=== PATIENT | female | born 1990 | race Caucasian/White ===

== ENCOUNTER → 2017-09-26 | Outpatient (CLI) | payer BC ==
[2017-09-26 20:08] LABS: FREE T4 1.29 NG/DL (0.76-1.46)
[2017-09-26 21:46] LABS: TOTAL T3 123.2 NG/DL (60.0-181.0)
== END ==
LOC: M WUC 17:26
DX: E05.00 Thyrotoxicosis with diffuse goiter without thyrotoxic crisis or storm (principal)
CPT/HCPCS: 84480

== ENCOUNTER → 2017-10-10 | Outpatient (CLI) | payer BC | LOC: M RAD 12:09 | DX: E05.00 Thyrotoxicosis with diffuse goiter without thyrotoxic crisis or storm (principal) ==

== ENCOUNTER → 2018-03-16 | Outpatient (REF) | payer BC | LOC: M LAB REF 17:19 | DX: Z12.4 Encounter for screening for malignant neoplasm of cervix (principal) | CPT/HCPCS: 88142; G0123 ==

== ENCOUNTER → 2018-05-07 | Outpatient (REF) | payer BC | LOC: M LAB REF 12:35 | PROVIDERS: ATTEND Physician Assistant | DX: J02.9 Acute pharyngitis, unspecified (principal) ==

== ENCOUNTER → 2018-10-03 | Outpatient (REF) | payer BC ==
[2018-10-15 14:22] LABS: GC DNA AMPLIFICATION NEGATIVE (NEGATIVE)
[2018-10-17 06:29] LABS: CHLAMYDIA DNA AMPLIFICATION NEGATIVE (NEGATIVE)
== END ==
LOC: M LAB REF 16:57
PROVIDERS: ATTEND Advanced Practice Midwife
DX: Z30.430 Encounter for insertion of intrauterine contraceptive device (principal)

== ENCOUNTER → 2018-10-14 | Outpatient (REF) | payer BC | LOC: M SFHCLERA 11:54 | PROVIDERS: ATTEND Nurse Practitioner Family | DX: J02.9 Acute pharyngitis, unspecified (principal) ==

== ENCOUNTER → 2019-03-20 | Outpatient (REF) | payer BC ==
[2019-03-20 19:53] LABS: CHLAMYDIA DNA AMPLIFICATION NEGATIVE (NEGATIVE); GC DNA AMPLIFICATION NEGATIVE (NEGATIVE)
== END ==
LOC: M LAB REF 17:09
PROVIDERS: ATTEND Advanced Practice Midwife
DX: Z11.3 Encounter for screening for infections with a predominantly sexual mode of transmission (principal)

== ENCOUNTER → 2019-03-20 | Outpatient (CLI) | payer BC ==
[2019-03-21 10:41] LABS: HEPATITIS A ANTIBODY IGM NEGATIVE (NEGATIVE); HEPATITIS B CORE ANTIBODY IGM NEGATIVE (NEGATIVE); HEPATITIS B SURFACE ANTIGEN NEGATIVE (NEGATIVE); HIV 1&2 SCREEN CENTAUR NEGATIVE (NEGATIVE)
== END ==
LOC: M SMT 15:54
PROVIDERS: ATTEND Advanced Practice Midwife
DX: Z11.3 Encounter for screening for infections with a predominantly sexual mode of transmission (principal)

== ENCOUNTER → 2020-09-08 | Outpatient (REF) | payer BC | LOC: M SFHCWAGY 17:07 | PROVIDERS: ATTEND Specialist | DX: Z12.4 Encounter for screening for malignant neoplasm of cervix (principal) ==

== ENCOUNTER → 2021-12-16 | Outpatient (REF) | payer BC | LOC: M LABWUC 15:44 | PROVIDERS: ATTEND Obstetrics & Gynecology | DX: N91.2 Amenorrhea, unspecified (principal) ==

== ENCOUNTER → 2021-12-18 | Outpatient (CLI) | payer BC | LOC: M WUC 14:51 | PROVIDERS: ATTEND Obstetrics & Gynecology | DX: N91.2 Amenorrhea, unspecified (principal) ==

== ENCOUNTER → 2021-12-31 | Outpatient (CLI) | payer BC ==
[2021-12-31 17:28] LABS: HEMATOCRIT 41.3 % (36.0-47.0); HEMOGLOBIN 13.9 g/dl (12.0-15.5); MEAN CORPUSCULAR HEMOGLOBIN 34.2 pg (27.0-33.0); MEAN CORPUSCULAR HGB CONC 33.7 g/dl (32.0-36.5); MEAN CORPUSCULAR VOLUME 101.5 fl (80.0-96.0); PLATELET COUNT, AUTOMATED 215 10^3/uL (150-450); RED BLOOD COUNT 4.07 10^6/uL (4.00-5.40); WHITE BLOOD COUNT 6.9 10^3/uL (4.0-10.0)
[2021-12-31 18:29] LABS: HEPATITIS B SURFACE ANTIGEN NEGATIVE (NEGATIVE); HEPATITIS C VIRUS ABY INDEX < 0.0 INDEX (<0.8); HIV 1&2 SCREEN CENTAUR NEGATIVE (NEGATIVE)
[2021-12-31 18:44] LABS: GC DNA AMPLIFICATION NEGATIVE (NEGATIVE)
== END ==
LOC: M WUC 11:06
PROVIDERS: ATTEND Specialist
DX: Z34.01 Encounter for supervision of normal first pregnancy, first trimester (principal)

== ENCOUNTER → 2022-02-09 | Outpatient (CLI) | payer BC | LOC: M PLALAB 13:27 | PROVIDERS: ATTEND Specialist | DX: Z34.80 Encounter for supervision of other normal pregnancy, unspecified trimester (principal) ==

== ENCOUNTER → 2022-03-01 | Outpatient (REF) | payer BC | LOC: M SFHCWAGY 12:58 | PROVIDERS: ATTEND Advanced Practice Midwife | DX: Z34.02 Encounter for supervision of normal first pregnancy, second trimester (principal) ==

== ENCOUNTER → 2022-04-01 | Outpatient (CLI) | payer BC | LOC: M WHC 08:28 | PROVIDERS: ATTEND Advanced Practice Midwife | DX: Z34.02 Encounter for supervision of normal first pregnancy, second trimester (principal) ==

== ENCOUNTER → 2022-05-18 | Outpatient (CLI) | payer BC ==
[2022-05-18 13:24] LABS: HEMATOCRIT 38.5 % (36.0-47.0); HEMOGLOBIN 13.3 g/dl (12.0-15.5); MEAN CORPUSCULAR HEMOGLOBIN 35.3 pg (27.0-33.0); MEAN CORPUSCULAR HGB CONC 34.5 g/dl (32.0-36.5); MEAN CORPUSCULAR VOLUME 102.1 fl (80.0-96.0); PLATELET COUNT, AUTOMATED 185 10^3/uL (150-450); RED BLOOD COUNT 3.77 10^6/uL (4.00-5.40); WHITE BLOOD COUNT 8.9 10^3/uL (4.0-10.0)
[2022-05-18 15:53] LABS: GC DNA AMPLIFICATION NEGATIVE (NEGATIVE)
== END ==
LOC: M PLALAB 09:29
PROVIDERS: ATTEND Specialist
DX: Z34.02 Encounter for supervision of normal first pregnancy, second trimester (principal)

== ENCOUNTER → 2022-07-21 | Outpatient (REF) | payer BC | LOC: M SFHCWAGY 10:02 | PROVIDERS: ATTEND Obstetrics & Gynecology | DX: Z34.93 Encounter for supervision of normal pregnancy, unspecified, third trimester (principal) ==

== ENCOUNTER 2022-07-30 15:13 | Inpatient (IN) | payer BC ==
[~2022-07-30] VITALS: Ht 172.7 cm; Wt 115.4 kg
[2022-07-30] VITALS (15 sets, daily range): BP systolic 121–184; BP diastolic 74–103
[2022-07-30] MEDS ORDERED: [UNRECOGNIZED DRUG - CODE] SQ (15:33)
[2022-07-30] MEDS ORDERED: FAMO20TA PO (15:33)
[2022-07-30] MEDS ORDERED: PRENTAB9 PO (15:33)
[2022-07-30] MEDS ORDERED: BENA25CA4 PO (15:33)
[2022-07-30 16:42] LABS: CREATININE,RANDOM URINE 34.5 MG/DL
[2022-07-30 16:43] LABS: TOTAL PROTEIN,RANDOM URINE < 6.0 MG/DL (0.0-14.0)
[2022-07-30] MEDS: BETAMETHASONE SOLUSPAN 6MG/ML 5ML VIAL IM SCH (16:43)
[2022-07-30 16:45] LABS: HEMATOCRIT 37.1 % (36.0-47.0); MEAN CORPUSCULAR HEMOGLOBIN 34.6 pg (27.0-33.0); MEAN CORPUSCULAR VOLUME 98.7 fl (80.0-96.0); PLATELET COUNT, AUTOMATED 183 10^3/uL (150-450); RED BLOOD COUNT 3.76 10^6/uL (4.00-5.40); WHITE BLOOD COUNT 8.3 10^3/uL (4.0-10.0)
[2022-07-30 17:04] LABS: URIC ACID 6.1 MG/DL (3.1-7.8)
[2022-07-30 17:07] LABS: LDH LACTATE DEHYDROGENASE 172 U/L (120-246)
[2022-07-30 17:08] LABS: ALT/SGPT 24 U/L (7.0-40); AST/SGOT 20 U/L (<34); BILIRUBIN,TOTAL 0.4 MG/DL (0.3-1.2); CREATININE FOR GFR 0.61 MG/DL (0.55-1.30); GLOMERULAR FILTRATION RATE > 60.0 (>60)
[2022-07-30] MEDS ORDERED: CARBOPROST TROMETHAMINE 250 MCG/ML AMP IM PRN (18:10)
[2022-07-30] MEDS ORDERED: TRANEXAMIC ACID INJection 1,000 MG in NS 100 ML IV PRN (18:10)
[2022-07-30] MEDS ORDERED: OXYTOCIN DRIP 30 UNITS in IV 1 EA IV PRN (18:10)
[2022-07-30] MEDS ORDERED: LIDOCAINE 1% MDV 20ML VIAL INFIL PRN (18:10)
[2022-07-30] MEDS: FAMOTIDINE 20 MG TAB PO SCH ×2 (18:26→21:00)
[2022-07-30] MEDS: diphenhydrAMINE 50MG CAP PO SCH (20:21)
[2022-07-30] MEDS ORDERED: HEPARIN SOD (PORCINE) 5000UNITS/ML 1ML VIAL/SYRINGE SQ ONE (21:00)
[2022-07-31] VITALS (10 sets, daily range): BP systolic 114–139; BP diastolic 61–84
[2022-07-31] MEDS: BETAMETHASONE SOLUSPAN 6MG/ML 5ML VIAL IM SCH (04:40)
[2022-07-31] MEDS ORDERED: LR 1,000 ML IV SCH (06:55)
[2022-07-31] MEDS ORDERED: LACTATED RINGER'S 1000 ML IV STA (06:55)
[2022-07-31] MEDS ORDERED: BICITRA 30ML SOLN UDC PO ONE (06:55)
[2022-07-31] MEDS ORDERED: ceFAZolin SOD 2 GM in IV 1 EA IV ONE (06:55)
[2022-07-31 07:31] LABS: HEMATOCRIT 38.3 % (36.0-47.0); MEAN CORPUSCULAR HEMOGLOBIN 33.8 pg (27.0-33.0); MEAN CORPUSCULAR HGB CONC 33.9 g/dl (32.0-36.5); MEAN CORPUSCULAR VOLUME 99.5 fl (80.0-96.0); PLATELET COUNT, AUTOMATED 194 10^3/uL (150-450); RED BLOOD COUNT 3.85 10^6/uL (4.00-5.40); WHITE BLOOD COUNT 10.3 10^3/uL (4.0-10.0)
[2022-07-31 08:00] LABS: URIC ACID 7.4 MG/DL (3.1-7.8)
[2022-07-31 08:02] LABS: LDH LACTATE DEHYDROGENASE 169 U/L (120-246)
[2022-07-31 08:03] LABS: ALT/SGPT 34 U/L (7.0-40); AST/SGOT 26 U/L (<34); BILIRUBIN,TOTAL 0.5 MG/DL (0.3-1.2); CREATININE FOR GFR 0.63 MG/DL (0.55-1.30); GLOMERULAR FILTRATION RATE > 60.0 (>60)
[2022-07-31] MEDS ORDERED: MORPHINE PRES-FREE INJ 10 MG/10 ML VIAL As Ordered ONE (08:25)
[2022-07-31] MEDS ORDERED: ONDANSETRON 4MG 2ML VIAL As Ordered ONE (08:25)
[2022-07-31] MEDS ORDERED: OXYTOCIN 30UNITS IN 0.9% NaCl 500ML IV BAG As Ordered ONE ×2 (08:56→09:38)
[2022-07-31] MEDS ORDERED: KETOROLAC 60MG 2ML VIAL As Ordered ONE (08:58)
[2022-07-31] MEDS: FAMOTIDINE 20 MG TAB PO SCH ×2 (09:00→20:06)
[2022-07-31 09:09] LABS: CORD GAS ABE V -4.4; CORD GAS HCO3 V 21.6 MEQ/L; CORD GAS O2 SAT V 57.2 %; CORD GAS PCO2 V 42.9 mmHg; CORD GAS PH V 7.32 UNITS; CORD GAS PO2 V 23.5 mmHg; CORD GAS TCO2 V 22.9 MEQ/L
[2022-07-31 09:11] LABS: CORD GAS ABE A -7.8; CORD GAS HCO3 A 18.9 MEQ/L; CORD GAS O2 SAT A 43.4 %; CORD GAS PCO2 A 42.8 mmHg; CORD GAS PH A 7.263 UNITS; CORD GAS PO2 A 20.3 mmHg; CORD GAS SBC A 17.1 MEQ/L; CORD GAS TCO2 A 20.2 MEQ/L
[2022-07-31] MEDS ORDERED: oxyCODONE 5MG TAB PO PRN (09:25)
[2022-07-31] MEDS ORDERED: diphenhydrAMINE 50MG/ML VIAL IV PRN (09:25)
[2022-07-31] MEDS ORDERED: SLF 3 ML SYR IV SCH ×2 (09:25→14:00)
[2022-07-31] MEDS ORDERED: **NOTE PATIENT COMMENT** MISC XX SCH (09:25)
[2022-07-31] MEDS ORDERED: fentaNYL 100 MCG/2 ML INJECTION IV PRN (09:25)
[2022-07-31] MEDS ORDERED: NALOXONE INJ 0.4MG/1ML VIAL IV PRN ×2 (09:25)
[2022-07-31] MEDS ORDERED: METOCLOPRAMIDE INJ 10MG/2ML VIAL IV PRN (09:25)
[2022-07-31] MEDS ORDERED: ONDANSETRON 4MG 2ML VIAL IV PRN (09:25)
[2022-07-31] MEDS ORDERED: HEPA10009 SC (10:09)
[2022-07-31] MEDS ORDERED: oxyCODONE 5MG TAB As Ordered ONE ×2 (11:04→11:12)
[2022-07-31] MEDS ORDERED: diphenhydrAMINE 50MG/ML VIAL As Ordered ONE (11:40)
[2022-07-31] MEDS ORDERED: SLF 3 ML SYR IV PRN (14:25)
[2022-07-31] MEDS ORDERED: PERCOCET 5MG/325MG TAB PO PRN ×2 (14:30)
[2022-07-31] MEDS: KETOROLAC 30 MG/ML 1ML VIAL IV SCH ×2 (14:38→20:06)
[2022-07-31] MEDS: diphenhydrAMINE 50MG CAP PO SCH (20:05)
[2022-08-01 02:00] VITALS: BP 105/60
[2022-08-01] MEDS: KETOROLAC 30 MG/ML 1ML VIAL IV SCH (03:05)
[2022-08-01 06:00] VITALS: BP 117/67
[2022-08-01] MEDS: FAMOTIDINE 20 MG TAB PO SCH ×2 (09:00→19:48)
[2022-08-01] MEDS: DOCUSATE SODIUM 100MG CAPSULE PO SCH ×2 (09:00→19:48)
[2022-08-01 10:00] VITALS: BP 113/59
[2022-08-01] MEDS: IBUPROFEN 800 MG TAB PO SCH ×2 (11:02→19:49)
[2022-08-01] MEDS: SIMETHICONE 80MG CHEW TAB PO PRN ×2 (13:25→17:50)
[2022-08-01 14:00] VITALS: BP 122/70
[2022-08-01 18:00] VITALS: BP 132/79
[2022-08-01] MEDS: diphenhydrAMINE 50MG CAP PO SCH (21:00)
[2022-08-01 22:00] VITALS: BP 127/81
[2022-08-02 02:00] VITALS: BP 128/82
[2022-08-02] MEDS: IBUPROFEN 800 MG TAB PO SCH ×2 (03:00→10:56)
[2022-08-02 05:50] VITALS: BP 132/83
[2022-08-02] MEDS: FAMOTIDINE 20 MG TAB PO SCH (09:00)
[2022-08-02] MEDS: DOCUSATE SODIUM 100MG CAPSULE PO SCH (09:19)
[2022-08-02] MEDS ORDERED: COLA100C5 PO (12:52)
[2022-08-02] MEDS ORDERED: PERCOCET PO (12:52)
[2022-08-02] MEDS ORDERED: IBUP80TA PO (12:52)
[2022-08-02] MEDS ORDERED: LOVE1INJ SC (12:55)
== END 2022-08-02 13:07 | disposition home or self-care (01) | DRG 540 ==
LOC: M LDO 15:13 → M LDI 17:34 → M OBS 07-31 11:50
PROVIDERS: ADMIT Advanced Practice Midwife; ATTEND Specialist
PROC: 10D00Z1 Extraction of Products of Conception, Low, Open Approach (ICD-10-PCS; principal; 2022-07-31 08:00)
DX: O14.94 Unspecified pre-eclampsia, complicating childbirth (principal); Z86.711 Personal history of pulmonary embolism; Z3A.36 36 weeks gestation of pregnancy; Z37.0 Single live birth; Z79.01 Long term (current) use of anticoagulants; Z88.0 Allergy status to penicillin; Z88.2 Allergy status to sulfonamides; Z88.1 Allergy status to other antibiotic agents

== ENCOUNTER → 2023-05-27 | Outpatient (CLI) | payer BC ==
[~2023-05-27] MED LIST: BENA25CA4 PO; COLA100C5 PO; FAMO20TA PO; HEPA10009 SC; IBUP80TA PO; LOVE1INJ SC; PERCOCET PO; PRENTAB9 PO; [UNRECOGNIZED DRUG - CODE] SQ
== END ==
LOC: M WUC 14:24
PROVIDERS: ATTEND Internal Medicine
DX: R05.9 Cough, unspecified (principal)

== ENCOUNTER 2023-08-08 10:59 | Emergency (ER) | payer BC ==
[~2023-08-08] VITALS: Ht 172.7 cm; Wt 112.5 kg
[2023-08-08] MEDS ORDERED: ALBU8.5H (11:15)
[2023-08-08] MEDS ORDERED: CETI10CH PO (11:15)
[2023-08-08] MEDS ORDERED: MACR100C43 PO (13:59)
[2023-08-08 14:16] VITALS: BP 139/90; TEMP 97.4; O2SAT 98
== END 2023-08-08 14:18 | disposition home or self-care (01) ==
LOC: M ED 10:59
DX: R32 Unspecified urinary incontinence (principal); R82.71 Bacteriuria; Z88.0 Allergy status to penicillin; Z88.2 Allergy status to sulfonamides; Z88.1 Allergy status to other antibiotic agents; Z79.51 Long term (current) use of inhaled steroids; Z79.1 Long term (current) use of non-steroidal anti-inflammatories (NSAID); Z79.899 Other long term (current) drug therapy